=== PATIENT | female | born 1985 | race Caucasian/White ===

== ENCOUNTER 2019-10-17 20:41 | Outpatient (CLI) | payer OTHER ==
[2019-10-17] MEDS ORDERED: PRENATAL CAPLE1 EAC1 PO (21:31)
[2019-10-17] MEDS ORDERED: SYNTHROID50 MCG PO (21:32)
[2019-10-17] MEDS ORDERED: PEPCID40 MG PO (21:32)
[2019-10-17] MEDS ORDERED: ALPRAZOLAM ODT1 MG PO (21:36)
== END 2019-10-18 10:49 | disposition home or self-care (01) ==
LOC: OBS/DEL 20:41
DX: O60.03 Preterm labor without delivery, third trimester (principal)

== ENCOUNTER → 2019-10-28 17:44 | Outpatient (CLI) | payer OTHER ==
[~2019-10-28 17:44] MED LIST: ALPRAZOLAM ODT1 MG PO; PEPCID40 MG PO; PRENATAL CAPLE1 EAC1 PO; SYNTHROID50 MCG PO
== END | disposition home or self-care (01) ==
LOC: LAB 17:44
DX: O09.73 Supervision of high risk pregnancy due to social problems, third trimester (principal); Z11.4 Encounter for screening for human immunodeficiency virus [HIV]

== ENCOUNTER → 2019-11-16 | Outpatient (CLI) | payer OTHER | END | disposition home or self-care (01) | LOC: NST 11:53 | DX: Z34.83 Encounter for supervision of other normal pregnancy, third trimester (principal) ==